=== PATIENT | female | born 1960 | race African-American/Black ===

== ENCOUNTER 2022-02-07 09:14 | Emergency (ER) | payer OTHER, SELFPAY ==
[2022-02-07] MEDS ORDERED: Ketorolac Tromethamine 30 MG/ML VIAL ONE (12:31)
== END 2022-02-07 13:47 | disposition home or self-care (01) ==
LOC: CSHERS 09:14
DX: S29.012A Strain of muscle and tendon of back wall of thorax, initial encounter (principal); R07.81 Pleurodynia; X50.0XXA Overexertion from strenuous movement or load, initial encounter; Y93.F2 Activity, caregiving, lifting; Y92.69 Other specified industrial and construction area as the place of occurrence of the external cause
CPT/HCPCS: 71045; 72128; 96372; J1885